=== PATIENT | male | born 1980 | race Caucasian/White ===

== ENCOUNTER 2023-03-24 07:04 | Emergency (ER) | payer SELFPAY ==
[~2023-03-24] VITALS: Ht 188 cm; Wt 102.1 kg
[2023-03-24 07:36] VITALS: BP_SYST 156; PULSE 83; RESP 20; TEMP 98; O2SAT 97
[2023-03-24] MEDS ORDERED: NACL 0.9% 1,000 ML IV ONE (08:15)
[2023-03-24] MEDS ORDERED: VANCOMYCIN HCL 1,000 MG in NS 250 ML IV ONE (08:15)
[2023-03-24] MEDS ORDERED: VANCOMYCIN HCL 1000 MG/VIAL IV ONE (08:45)
[2023-03-24 08:54] LABS: BASOPHILS # (AUTO) 0.1 K/uL (0.0-0.2); BASOPHILS % (AUTO) 1.3 % (0.0-2.0); EOSINOPHILS # (AUTO) 0.4 K/uL (0.0-0.4); EOSINOPHILS % (AUTO) 6.9 % (0.0-4.0); HEMATOCRIT 42.2 % (36-54); HEMOGLOBIN 14.3 g/dL (14.0-18.0); LYMPHOCYTES # (AUTO) 1.7 K/uL (1.0-5.5); LYMPHOCYTES % (AUTO) 27.2 % (20.5-51.5); MEAN CORPUSCULAR HEMOGLOBIN 29 pg (27-31); MEAN CORPUSCULAR HGB CONC 34 % (32-36); MEAN CORPUSCULAR VOLUME 87 fL (79.0-98.0); MONOCYTES # (AUTO) 0.4 K/uL (0.0-1.0); MONOCYTES % (AUTO) 6.9 % (1.7-9.3); NEUTROPHILS # (AUTO) 3.5 K/uL (1.8-7.7); NEUTROPHILS % (AUTO) 57.7 % (40.0-70.0); PLATELET COUNT (AUTO) 231 K/uL (130-430); RED BLOOD CELL COUNT(AUTO) 4.88 MIL/uL (4.2-6.2); RED CELL DISTRIBUTION WIDTH 12.8 % (9.0-15.0); WHITE BLOOD COUNT (AUTO) 6.1 K/uL (4.8-10.8)
[2023-03-24 09:11] LABS: CREATININE 0.74 mg/dL (0.55-1.30); POTASSIUM 3.8 mmol/L (3.5-5.1)
[2023-03-24 09:16] LABS: TOTAL BILIRUBIN 0.4 mg/dL (0.0-1.0); TOTAL PROTEIN, SERUM 7.2 g/dL (6.4-8.3)
[2023-03-24] MEDS ORDERED: CEPH-548 PO (10:56)
[2023-03-24] MEDS ORDERED: CHLO118L TP (10:56)
[2023-03-24] MEDS ORDERED: SULF1TAB48 PO (10:56)
[2023-03-24 11:11] VITALS: BP_SYST 134; PULSE 59; RESP 16; TEMP 97.2; O2SAT 98
== END 2023-03-24 11:10 | disposition home or self-care (01) ==
LOC: SED 07:04
DX: L03.116 Cellulitis of left lower limb (principal); L03.115 Cellulitis of right lower limb; L08.9 Local infection of the skin and subcutaneous tissue, unspecified; Z79.899 Other long term (current) drug therapy
CPT/HCPCS: 99284; 96365; 96366; 80053; 85025; 87040; 36415; 83605; J3370